=== PATIENT | male | born 1960 | race African-American/Black ===

== ENCOUNTER 2020-12-03 18:09 | Inpatient (IN) | payer OTHER ==
[~2020-12-03] VITALS: Ht 177.8 cm; Wt 80.3 kg
--- NOTE | ~2020-12-03 | EMS ---
[address] [address] EMS Patient Care Report Name: BROOKLYN STOVALL Room #: 202-P [facility] IN M.R.#: [id number] Admission: 12/03/20 Attend Phys: Dwight Russell MD Discharge: 12/07/20 Date of : 62 Report #: [id number] THIS REPORT FOR: //name// Report Transmitted: 12/08/2020 09:54 EMS Care Summary [place], [place]/[facility] Incident [id number] @ 12/03/2020 17:22 Incident Location [id number] [place] [address] [address] A Patient DC SIA Male, 60 Years 1960 Patient Address [id number] [place] [address] [address] [place] [address] Patient History Other,Diabetes,Hypertension (HTN), Chief Complaint visual hallucinations Disposition Transported No Lights/[place] Dispatch Reason Psychiatric Problem/Abnormal Behavior/Suicide Attempt Transported To [facility] Narrative pt found seated on bedside, a&o. pt is blind, but today has been having visual hallucinations that bugs are crawling on him and that "hands are coming out of the cesar". he knows that what he is "seeing" is not real. pt is a&o, follows command. pt to be eval at [facility]. he is able to sit on cot w/ assist. transported w/o incident. Initial Vitals [address] [address] EMS Patient Care Report Name: BROOKLYN STOVALL Room #: 202-P [facility] IN M.R.#: [id number] Admission: 12/03/20 Attend Phys: Dwight Russell MD Discharge: 12/07/20 Date of : 62 Report #: [id number] @17:50P: 88,R: 20,BP: 159/89,Pain: 0/10,GCS: 15,Glucose: 215,SpO2: 99,Revised Trauma: 12, Assessments @17:50MENTAL:Hallucinations,Place Oriented,Event Oriented,Person Oriented,Time Oriented,SKIN:No Abnormalities,HEENT:Eyes: Left: Blind,Eyes: Right: Blind,Head/Face: No Abnormalities,LUNG SOUNDS:ABDOMEN:PELVIS//GI:EXTREMITIES:Left Leg: Other,PULSE:Radial: 2+ Normal,NEURO:No Abnormalities, Impression Behavioral/psychiatric episode Procedures @17:50ALS Assessment@17:53StretcherResponse: Unchanged Timeline 17:19,Call Received 17:19,Dispatch Notified 17:22,Dispatched 17:22,En Route 17:47,On Scene 17:50,At Patient 17:50,BP: 159/89 M,PULSE: 88,RR: 20 R,SPO2: 99 Ox,ETCO2: ,B,PAIN: 0,GCS: 15, 17:50,ALS Assessment, 17:53,Stretcher,Response: Unchanged 17:57,Depart Scene 18:05,At Destination 18:25,Call Closed Disclaimer v1.1 Copyright 2020 [employer] This EMS Care Summary contains data elements from the applicable legal record (which may be displayed differently). It is designed to provide pertinent information for the following purposes: continuity of care, clinical quality, and state data reporting. The complete legal record is available to ED staff and administrators of the receiving hospital in [employer] Patient Tracker. All data is provided "as is."
[2020-12-03 18:10] VITALS: BP 239/118
[2020-12-03] MEDS ORDERED: FAMOTIDINE 20 M20 MG PO (19:00)
[2020-12-03] MEDS ORDERED: LIPITOR40 MG PO (19:00)
[2020-12-03] MEDS ORDERED: IRON325 M1 PO (19:00)
[2020-12-03] MEDS ORDERED: LANTUS SUBQ (19:04)
[2020-12-03] MEDS ORDERED: KAPSPARGO SPRI100 MG PO (19:04)
[2020-12-03] MEDS ORDERED: COZAAR 50 MG TA50 MG PO (19:04)
[2020-12-03] MEDS ORDERED: HUMALOG100 UNIT/1 SUBQ (19:05)
--- NOTE | 2020-12-03 19:36 | NUR ---
I CONTACTED LAB. BLOODWORK DRAWN BUT NOT RAN YET. I SPOKE TO DAFNE. WILL LOCATE.
[2020-12-03 19:46] LABS: URINE BILIRUBIN NEGATIVE (Negative); URINE BLOOD 2+ (Negative); URINE CLARITY CLEAR; URINE COLOR YELLOW; URINE GLUCOSE-RANDOM* 1+ (Negative); URINE KETONES NEGATIVE (Negative); URINE LEUKOCYTES-REFLEX NEGATIVE (Negative); URINE NITRITE-REFLEX NEGATIVE (Negative); URINE PROTEIN (DIPSTICK) 3+ (Negative); URINE SPECIFIC GRAVITY 1.025 (1.005-1.035); URINE UROBILINOGEN 0.2 E.U./dl (0.2-1.0)
[2020-12-03 19:47] LABS: ABSOLUTE NEUTROPHILS 6.2 thou/uL (1.4-8.2); BASOPHILS 0.3 % (0.0-2.0); EOSINOPHILS 4.5 % (0.0-3.0); HEMOGLOBIN 10.6 gm/dL (14.0-18.0); LYMPHOCYTES 23.7 % (24.0-44.0); MCH 29.6 pg (26.0-34.0); MCHC 34.3 g/dL (28.0-37.0); MCV 86.3 fL (80.0-100.0); MONOCYTES 7.2 % (1.0-8.0); PLATELET COUNT 221 thou/uL (150-400); POLYS 64.3 % (36.0-66.0); RBC 3.59 mil/uL (4.50-6.00); RDW 13.8 % (10.5-14.5); WBC 9.7 thou/uL (4.0-11.0)
[2020-12-03 19:49] LABS: CALCIUM 8.3 mg/dL (8.5-10.1); POTASSIUM 4.1 mmol/L (3.5-5.1)
[2020-12-03 19:54] LABS: AMP/METHAMP Negative (Negative); BARBITURATES Negative (Negative); BENZODIAZEPINES Negative (Negative); COCAINE Negative (Negative); METHADONE Negative (Negative); OPIATES Negative (Negative); PCP Negative (Negative)
[2020-12-03 19:59] LABS: ALBUMIN 2.7 g/dL (3.4-5.0); DIRECT BILIRUBIN 0.1 mg/dL (<0.1-0.2); TOTAL BILIRUBIN 0.4 mg/dL (0.2-1.0); TOTAL PROTEIN 6.6 g/dL (6.4-8.2)
[2020-12-03 20:00] LABS: BACTERIA-REFLEX 1-9 Few /HPF (None Seen); CASTS None Seen /LPF (None Seen); CRYSTALS None Seen /LPF (None Seen); MUCUS 0-3 Light strn/LPF (None Seen); SQUAMOUS 0-3 Few /LPF (0-3); URINE WBC-REFLEX 0-5 Rare /HPF (0-5)
[2020-12-04 04:56] LABS: CALCIUM 8.4 mg/dL (8.5-10.1); CREATININE 3.2 mg/dL (0.7-1.3); POTASSIUM 3.2 mmol/L (3.5-5.1)
[2020-12-04 11:40] VITALS: BP 139/85
[2020-12-04 12:03] VITALS: BP 109/73
[2020-12-04 13:10] VITALS: BP 208/101
[2020-12-04 15:06] VITALS: BP 150/96
--- NOTE | 2020-12-04 15:21 | NUR ---
RECEIVED PT FROM THE ED. ADMISSION COMPLETED. PT IS AXOX3, POOR ORIENTATION TO SITUATION, FORGETFUL. PT IS LEGALLY BLIND. PT COMES FROM [facility]. PT SISTER CALLED AND INFORMATION UPDATED IN ADMISSION INFORMATION. POC IS TO CONTINUE TO MONITOR BP, VS. HIGH FALL RISK. PT USES WHEELCHAIR AT SNF. FALL PRECAUTIONS IN PLACE. FREQUENT MONITORING.
[2020-12-04 20:15] VITALS: BP 171/84
[2020-12-04 23:54] VITALS: BP 159/80
[2020-12-05 03:35] VITALS: BP 160/81
--- NOTE | 2020-12-05 03:48 | NUR ---
SLEPT MOST OF SHIFT. REMAINS ORIENTED X4, CALM AND COOPERATIVE. WORKING ON GOALS AND PLAN OF CARE FOR NOC. REMAINS APPROPRIATE. DENIES COMPLAINTS OF PAIN OR SHORTNESS OF AIR. CONTINUE TO ASSES CLOSELY.
[2020-12-05 05:58] LABS: POTASSIUM 3.9 mmol/L (3.5-5.1)
[2020-12-05 08:32] VITALS: BP 158/84
[2020-12-05 09:03] LABS: URINE CREATININE-RANDOM* 90.4 mg/dL
[2020-12-05 16:27] VITALS: BP 149/95
[2020-12-05 19:18] VITALS: BP 176/106
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
[2020-12-05 20:16] VITALS: BP 164/88
[2020-12-05 23:30] VITALS: BP 176/93
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
--- NOTE | 2020-12-06 04:08 | NUR ---
SEREQUEL GIVEN PER ORDERS. RESTING QUIETLY AT PRESENT TIME AND REMAINS CALM. WORKING ON GOALS AND PLAN OF CARE FOR NOC. NO COMPLAINTS OF PAINS. NO PRESENT HALLUCINATIONS. CONTINUE TO ASSES.
[2020-12-06 04:12] LABS: ALBUMIN 2.4 g/dL (3.4-5.0); CALCIUM 8.3 mg/dL (8.5-10.1); PHOSPHORUS 2.9 mg/dL (2.6-4.7); POTASSIUM 4.2 mmol/L (3.5-5.1)
[2020-12-06 04:50] VITALS: BP 154/69
[2020-12-06 07:25] VITALS: BP 148/77
[2020-12-06 11:15] VITALS: BP 150/78
[2020-12-06 12:48] LABS: URINE CREATININE-RANDOM* 86.9 mg/dL; URINE PROTEIN-RANDOM* 290.9 mg/dL (<11.9)
[2020-12-06 15:15] VITALS: BP 154/74
--- NOTE | 2020-12-06 18:37 | NUR ---
PT HAS RESTED IN BED WITH MINIMAL HALLUCINATION THIS PM. DOES NOT SEEM TO BE IN PAIN. WILL CONT PLAN OF CARE.
[2020-12-06 20:20] VITALS: BP 146/70
[2020-12-07 04:30] VITALS: BP 140/88
[2020-12-07 04:36] LABS: CALCIUM 7.9 mg/dL (8.5-10.1); PHOSPHORUS 2.9 mg/dL (2.5-4.9); POTASSIUM 4.2 mmol/L (3.5-5.1)
--- NOTE | 2020-12-07 06:10 | NUR ---
SLEPT MOST OF SHIFT. REMAINS CALM AND COOPERATIVE. ORIENTED X3-4. SOMETIMES FORGETS WHY HE IS IN HOSPITAL. WORKING ON GOALS AND PLAN OF CARE FOR NOC. PLANS FOR POSSIBLE DISCHARGE TODAY. CONTINUE TO ASSES CLOSELY.
[2020-12-07 07:25] VITALS: BP 129/62
--- NOTE | 2020-12-07 07:33 | EKG ---
[address] [place] [address] ELECTROCARDIOGRAM REPORT Name: BROOKLYN STOVALL Room #: 202 ADM IN M.R.#: [id number] Admission: 12/03/20 Attend Phys: Raymond Hassan MD Discharge: Date of : 62 Report #: [id number] [facility] ED Test Date: 2020-12-03 Test Time: 18:36:48 Pat Name: BROOKLYN STOVALL Department: Room: 202 Gender: M Research And Development Tester: unknown : 1960 Requested By: Neftali Pryor Order Number: [id number] MD: Jason Guzman Measurements Intervals [place] Rate: 90 P: 52 LA: 192 QRS: -4 QRSD: 82 T: 105 QT: 361 QTc: 442 Interpretive Statements Sinus rhythm Probable left atrial enlargement Nonspecific T abnormalities, lateral leads No previous ECG available for comparison Electronically Signed On 12-07-2020 7:33:12 CDT by Jason Guzman [email or web address] <ELECTRONICALLY SIGNED> By: Jason Guzman MD, [facility] 12/07/20 0733 [id number] 1836 Jason Guzman MD, FACC /EPI
[2020-12-07 11:35] VITALS: BP 173/90
[2020-12-07 12:37] VITALS: BP 173/90
--- NOTE | 2020-12-07 12:39 | NUR ---
Pt dcing back to ltc today at [facility]. SHEA Hillman aware and agreeable. She has arranged for a 1330 w/c van ride. Pt and nursing notified. Clinical and orders faxed to the facility and chart copy in progress to be sent with the pt. Nursing to call report. Pt's sister luna updated as well per pt request.
[2020-12-07] MEDS ORDERED: AMLODIPINE BESY10 MG PO (12:55)
[2020-12-07] MEDS ORDERED: SEROQUEL 25 MG25 M1 PO (12:55)
[2020-12-07] MEDS ORDERED: ACETAMINOPHEN325 M1 PO (12:55)
--- NOTE | 2020-12-07 14:23 | NUR ---
PATIENT DISCHARGED BY TRANSPORT. REPORT CALLED TO [place]. NO QUESTIONS OR CONCERNS AT TIME OF TRANSFER
== END 2020-12-07 14:25 | DRG 304 ==
LOC: ER 18:09 → EROBS 20:57 → 2N 20:57
PROVIDERS: Hospitalist; Nurse Practitioner Family; Student in an Organized Health Care Education/Training Program; ADMIT Hospitalist; ATTEND Hospitalist
DX: I16.1 Hypertensive emergency (principal); N17.0 Acute kidney failure with tubular necrosis; E78.5 Hyperlipidemia, unspecified; H54.8 Legal blindness, as defined in USA; E11.65 Type 2 diabetes mellitus with hyperglycemia; I12.9 Hypertensive chronic kidney disease with stage 1 through stage 4 chronic kidney disease, or unspecified chronic kidney disease; F20.9 Schizophrenia, unspecified; E11.51 Type 2 diabetes mellitus with diabetic peripheral angiopathy without gangrene; R53.81 Other malaise; E11.21 Type 2 diabetes mellitus with diabetic nephropathy; N18.9 Chronic kidney disease, unspecified; E11.22 Type 2 diabetes mellitus with diabetic chronic kidney disease; E11.36 Type 2 diabetes mellitus with diabetic cataract; H26.9 Unspecified cataract; Z20.822 Contact with and (suspected) exposure to COVID-19; Z79.899 Other long term (current) drug therapy; Z89.432 Acquired absence of left foot; Z79.4 Long term (current) use of insulin; Z82.49 Family history of ischemic heart disease and other diseases of the circulatory system; Z83.3 Family history of diabetes mellitus
CPT/HCPCS: 10081

== ENCOUNTER 2020-12-11 04:31 | Emergency (ER) | payer OTHER ==
[~2020-12-11] VITALS: Ht 177.8 cm; Wt 85.7 kg
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
[~2020-12-11 04:31] MED LIST: ACETAMINOPHEN325 M1 PO; AMLODIPINE BESY10 MG PO; COZAAR 50 MG TA50 MG PO; FAMOTIDINE 20 M20 MG PO; HUMALOG100 UNIT/1 SUBQ; IRON325 M1 PO; KAPSPARGO SPRI100 MG PO; LANTUS SUBQ; LIPITOR40 MG PO; SEROQUEL 25 MG25 M1 PO
[2020-12-11 05:41] LABS: URINE BILIRUBIN NEGATIVE (Negative); URINE BLOOD 2+ (Negative); URINE CLARITY CLEAR; URINE COLOR YELLOW; URINE GLUCOSE-RANDOM* TRACE (Negative); URINE KETONES NEGATIVE (Negative); URINE LEUKOCYTES-REFLEX NEGATIVE (Negative); URINE NITRITE-REFLEX NEGATIVE (Negative); URINE PROTEIN (DIPSTICK) 2+ (Negative); URINE SPECIFIC GRAVITY 1.025 (1.005-1.035); URINE UROBILINOGEN 0.2 E.U./dl (0.2-1.0)
[2020-12-11 05:41] LABS: BASOPHILS 0.2 % (0.0-2.0); EOSINOPHILS 5.8 % (0.0-3.0); HEMATOCRIT 27.5 % (42.0-52.0); HEMOGLOBIN 9.5 gm/dL (14.0-18.0); LYMPHOCYTES 22.6 % (24.0-44.0); MCH 30.2 pg (26.0-34.0); MCHC 34.7 g/dL (28.0-37.0); MCV 87.1 fL (80.0-100.0); MONOCYTES 8.4 % (1.0-8.0); PLATELET COUNT 213 thou/uL (150-400); RBC 3.15 mil/uL (4.50-6.00); RDW 13.8 % (10.5-14.5); WBC 7.9 thou/uL (4.0-11.0)
[2020-12-11 05:48] LABS: CALCIUM 8.5 mg/dL (8.5-10.1); CREATININE 2.9 mg/dL (0.7-1.3); POTASSIUM 3.8 mmol/L (3.5-5.1)
[2020-12-11 05:54] LABS: ALBUMIN 2.6 g/dL (3.4-5.0); TOTAL BILIRUBIN 0.4 mg/dL (0.2-1.0); TOTAL PROTEIN 6.6 g/dL (6.4-8.2)
[2020-12-11 05:57] LABS: CASTS None Seen /LPF (None Seen); MUCUS None Seen strn/LPF (None Seen); SQUAMOUS None Seen /LPF (0-3)
[2020-12-11 05:58] LABS: BACTERIA-REFLEX None Seen /HPF (None Seen); CRYSTALS None Seen /LPF (None Seen); URINE RBC None Seen /HPF (NONE SEEN); URINE WBC-REFLEX None Seen /HPF (0-5)
[2020-12-11 11:01] VITALS: BP 170/96
== END 2020-12-11 11:01 ==
LOC: ER 04:31
PROVIDERS: Emergency Medicine
DX: R44.3 Hallucinations, unspecified (principal); I10 Essential (primary) hypertension; E11.9 Type 2 diabetes mellitus without complications; Z79.4 Long term (current) use of insulin; Z79.899 Other long term (current) drug therapy